=== PATIENT | female | born 1990 ===

== ENCOUNTER 2021-09-25 05:30 | Day surgery (SDC) | payer OTHER ==
[2021-09-25] MEDS ORDERED: CARAFATE1 GM/10 ML PO (09:24)
[2021-09-25] MEDS ORDERED: PROTONIX40 MG PO (09:24)
== END 2021-09-25 10:50 | disposition home or self-care (01) ==
LOC: AMB-ENDOS 05:30
PROVIDERS: ATTEND Surgery
DX: D13.1 Benign neoplasm of stomach (principal); K44.9 Diaphragmatic hernia without obstruction or gangrene; Z20.822 Contact with and (suspected) exposure to COVID-19